=== PATIENT | female | born 1950 | race Caucasian/White ===

== ENCOUNTER → 2018-07-08 | Outpatient (CLI) | payer BC ==
[2018-07-08 11:30] VITALS: BP 177/84; PULSE 76; TEMP 98.1; BMI 27.9
--- NOTE | 2018-07-08 12:08 | P.HPOB ---
History of Present Illness H&P Date: 07/08/18 Chief Complaint: The patient is here for her routine gynecologic exam and mammogram. This is a 67-year-old G 12 P3093 with an LMP of 2003. The patient is without gynecologic complaints and denies any postmenopausal bleeding. Review of Systems She has lost 15 pounds over the last 2 years with diet and exercise. She denies respiratory, cardiac and G.I. problems. She denies maltreatment or problems with falling. : she denies any significant problems with urinary leakage. Past Medical History Past Medical History: No Reported History Additional Past Medical History / Comment(s): PAST [employer] ADMINISTRATOR HISTORY: She has no history of STDs. History of Any Multi-Drug Resistant Organisms: None Reported Past Surgical History: Section (x3), Tonsillectomy Additional Past Surgical History / Comment(s): Uterine myomectomy in 1978. Left ovarian cystectomy 1983, multiple D&Cs colonoscopy 2006. Past Psychological History: No Psychological Hx Reported Smoking Status: Never smoker Past Alcohol Use History: Occasional (1 per week) Past Drug Use History: None Reported - Past Family History Father Family Medical History: Cancer (Prostate cancer and of pancreatic cancer.) Medications and Allergies Home Medications Medication Instructions Recorded Confirmed Type No Known Home Medications 07/08/18 07/08/18 History Allergies Allergy/AdvReac Type Severity Reaction Status Date / Time codeine AdvReac Severe Hallucinati Unverified 07/08/18 11:21 ons Exam Vital Signs Temp Pulse BP 07/08/18 11:24 98.1 F 76 177/84 Intake and Output 07/07/18 07/08/18 07/08/18 22:59 06:59 14:59 Other: Weight 78.471 kg Height 5'6", weight 173 pounds, BMI 27.9. This is a well-developed well-nourished white female who is alert and oriented times 3 in no acute distress. HEENT: Within normal limits. NECK: Supple without mass or thyromegaly. CHEST AND LUNGS: Clear to auscultation. HEART: Regular rate and rhythm. BREASTS: Are without mass or discharge. AXILLARY EXAM: Negative for adenopathy. BACK: Negative for CVA tenderness. ABDOMEN: Soft, nontender, without palpable masses. PELVIC EXAM: Normal external genitalia with mild to moderate atrophy. Cervix and vagina appear normal is moderate atrophy. Cervix is somewhat stenotic secondary to atrophy. There is no unusual discharge. There is no evidence of prolapse. The uterus is midposition, nongravid size and nontender. There are no palpable adnexal masses or tenderness. RECTAL EXAM: rectovaginal exam is negative for mass or tenderness and is negative for occult blood. EXTREMITIES: Nontender. IMPRESSION: 1. 67-year-old menopausal female with normal gynecologic exam. 2. Elevated blood pressure. PLAN: 1. Pap smear was performed. We have discussed the recommendation of discontinuing Pap smears since she has had adequate screening and no history of abnormalities. She feels strongly that she would like to continue to have Pap smears done every 2 to 3 years. I have recommended that she come for yearly pelvic exams. 2. Self breast awareness was discussed with the patient. 3. Screening mammogram will be done today. 4. We have discussed her elevated blood pressure. I recommended that she see Dr. Mansfield in the near future for evaluation and possible treatment because of the blood pressure. She states she does do self blood pressure checks at [facility] and they are typically in the 130 range. 5. Osteoporosis prevention was discussed. I have recommended bone density screening since her last normal one was in 2009. She states she will do this next year at her annual exam. 6. She has received a flu shot this fall. 7. She will return in one year.
--- NOTE | 2018-07-10 09:52 | MM ---
Reason for exam: screening (asymptomatic). Last mammogram was performed 2 years and 10 months ago. History: Patient is postmenopausal. Took other hormone for 6 months. MG 3D Screening Mammo W/Cad Bilateral CC and MLO view(s) were taken. Prior study comparison: September 13, 2015, bilateral MG 3d screening mammo w/cad. August 24, 2014, bilateral MG screening mammo w CAD. There is a benign-appearing 4 mm equal oval circumscribed margins density in the left breast middle CC position approximatly 6 cm from the nipple. Finding is changed when compared to most recent study 09/13/15. ASSESSMENT: Probably benign, BI-RAD 3 RECOMMENDATION: Follow-up diagnostic mammogram of the left breast in 6 months.
== END | disposition home or self-care (01) ==
LOC: WWCWWP 10:55
PROVIDERS: ATTEND Obstetrics & Gynecology
DX: Z12.31 Encounter for screening mammogram for malignant neoplasm of breast (principal)
CPT/HCPCS: 77063; 77067

== ENCOUNTER → 2021-12-19 | Outpatient (CLI) | payer MEDICARE ==
--- NOTE | 2021-12-20 12:33 | MM ---
Reason for exam: screening (asymptomatic). Last mammogram was performed 2 years and 10 months ago. History: Patient is postmenopausal. Took other hormone for 6 months. Physical Findings: A clinical breast exam by your physician is recommended on an annual basis and results should be correlated with mammographic findings. MG 3D Screening Mammo W/Cad Bilateral CC and MLO view(s) were taken. Prior study comparison: February 18, 2019, left breast MG 3d diag mammo w/cad LT. July 08, 2018, bilateral MG 3d screening mammo w/cad. The breast tissue is heterogeneously dense. This may lower the sensitivity of mammography. No significant changes when compared with prior studies. ASSESSMENT: Benign, BI-RAD 2 RECOMMENDATION: Routine screening mammogram of both breasts in 1 year.
== END | disposition home or self-care (01) ==
LOC: RADMAMWWP 08:14
PROVIDERS: ATTEND Family Medicine
DX: Z12.31 Encounter for screening mammogram for malignant neoplasm of breast (principal); Z78.0 Asymptomatic menopausal state
CPT/HCPCS: 77063; 77067

== ENCOUNTER → 2023-12-03 | Outpatient (CLI) | payer MEDICARE ==
--- NOTE | 2023-12-04 12:10 | MM ---
Reason for Exam: Screening (asymptomatic). Last mammogram was performed 2 year(s) and 0 month(s) ago. Patient History: Menarche at age 16. First Full-Term at age 31. Postmenopausal. Patient has history of breast feeding. Risk Values: Melissa 5 year model risk: 1.8%. NCI Lifetime model risk: 4.9%. Prior Study Comparison: 08/24/2014 Bilateral Screening Mammogram, [facility]. 09/13/2015 Bilateral Screening Mammogram, [facility]. 07/08/2018 Bilateral Screening Mammogram, [facility]. 02/18/2019 Left Diagnostic Mammogram, [facility]. 12/19/2021 Bilateral Screening Mammogram, [facility]. Tissue Density: The breasts are heterogeneously dense, which may obscure small masses. Findings: Analyzed By CAD. There is no suspicious group of microcalcifications or new suspicious mass in either breast. Benign calcifications. Density in the upper margin of the right breast stable dating back 2 multiple prior exams. Overall Assessment: Benign, BI-RAD 2 Management: Screening Mammogram of both breasts in 1 year. . Patient should continue monthly self-breast exams. A clinical breast exam by your physician is recommended on an annual basis. This exam should not preclude additional follow-up of suspicious palpable abnormalities. Note on Melissa scores and lifetime risk: 1. A Melissa score greater than 3% is considered moderate risk. If this is the case, consider specialist referral to assess eligibility for a risk reducing agent. 2. If overall lifetime risk for the development of breast cancer is 20% or higher, the patient may qualify for future screening with alternating mammogram and breast MRI. Electronically signed and approved by: Gómez Marrero M.D. Radiologis
== END | disposition home or self-care (01) ==
LOC: RADMAMWWP 10:55
PROVIDERS: ATTEND Family Medicine
DX: Z12.31 Encounter for screening mammogram for malignant neoplasm of breast (principal); Z78.0 Asymptomatic menopausal state
CPT/HCPCS: 77063; 77067